=== PATIENT | female | born 1950 | race Caucasian/White ===

== ENCOUNTER 2019-05-23 08:01 | Inpatient (IN) | payer MEDICARE ==
[2019-05-20 09:18] LABS: BASOPHILS % 0.5 % (0.0-1.0); EOSINOPHILS # (AUTO) 0.1 (0.0-0.4); EOSINOPHILS % 2.3 % (0.0-6.0); HEMATOCRIT 37.5 % (34.2-44.1); HEMOGLOBIN 12.4 g/dL (12.0-16.0); LYMPHOCYTES # (AUTO) 2.3 (1.0-3.2); LYMPHOCYTES % 37.9 % (18.0-39.1); MEAN CORPUSCULAR HEMOGLOBIN 28.2 pg (28-32); MEAN CORPUSCULAR HGB CONC 33.1 g/dL (31-35); MEAN CORPUSCULAR VOLUME 85.4 fL (81-99); MONOCYTES # (AUTO) 0.7 (0.2-0.8); MONOCYTES % 11.1 % (4.4-11.3); NEUTROPHILS # (AUTO) 2.9 (2.1-6.9); NEUTROPHILS % 47.9 % (38.7-80.0); PLATELET COUNT 271 x10e3/uL (140-360); RED BLOOD COUNT 4.39 x10e6/uL (3.6-5.1); RED CELL DISTRIBUTION WIDTH 13.7 % (11.7-14.4)
--- NOTE | 2019-05-20 10:22 | Diagnostic Imaging Report ---
EXAMINATION: CHEST 2 VIEWS INDICATION: Preoperative COMPARISON: None FINDINGS: TUBES and LINES: None. LUNGS: The lung volumes are normal. No focal consolidation or pulmonary edema. PLEURA: No pleural effusion or pneumothorax. HEART AND MEDIASTINUM: The cardiomediastinal silhouette is normal in size and contour. BONES AND SOFT TISSUES: No acute fracture or dislocation. Moderate degenerative changes of the visualized spine. UPPER ABDOMEN: No free air under the diaphragm. IMPRESSION: No focal pneumonia or pulmonary edema. Signed by: Domo Hernadez MD on 05/20/2019 10:19 AM
[~2019-05-23] VITALS: Ht 165.1 cm; Wt 125.2 kg
[~2019-05-23 08:01] MED LIST: CITALOPRAM HBR20 MG PO; CRESTOR10 MG; GEMFIBROZIL600 MG; LOSARTAN POTAS100 MG PO; MELOXICAM7.5 MG PO; ROPIVACAINE 246.25 MG, EPINEPHRINE HCL 1:1000 1ML 0.5 MG, CLONIDINE HCL 0.08 MG, KETORO... INJ ONE; ULTRAM50 MG PO
--- OUTSIDE RECORDS SUMMARY | 2019-05-23 08:03 | XMS REPORT ---
Author [facility] Address Unknown Phone Unavailable Care Team Providers Care Fitness Manager Name Role Phone WAI WILKERSON Unavailable Unavailable Payers Payer Name Policy Type Policy Number Effective Date Expiration Date Problems This patient has no known problems. Allergies, Adverse Reactions, Alerts Allergy Name Allergy Type Status Severity Reaction(s) Onset Date Inactive Date Treating Clinician Comments Penicillins DA Active MO 2018-04-12 00:00:00 codeine DA Active MO 2018-04-12 00:00:00 Medications This patient has no known medications. Results Test Description Test Time Test Comments Text Results Atomic Results Result Comments CHEST 2 VIEWS 2019-05-20 10:18:00 [place] [id number] Patient Name: KATARZYNA DELVALLE MR #: [id number] : 1950 Age/Sex: 69/F Req #: [id number] Adm Physician: Ordered by: WAI WILKERSON MD Report #: [id number] Location: OR Room/Bed: Procedure: [id number] DX/CHEST 2 VIEWS Exam Date: 05/20/19 Exam Time: 914 REPORT STATUS: Signed EXAMINATION: CHEST 2 VIEWS INDICATION: Preoperative COMPARISON: None FINDINGS: TUBES and LINES: None. LUNGS: The lung volumes are normal. No focal consolidation or pulmonary edema. PLEURA: No pleural effusion or pneumothorax. HEART AND MEDIASTINUM: The cardiomediastinal silhouette is normal in size and contour. BONES AND SOFT TISSUES: No acute fracture or dislocation. Moderate degenerative changes of the visualized spine. UPPER ABDOMEN: No free air under the diaphragm. IMPRESSION: No focal pneumonia or pulmonary edema. Signed by: Charlotte Hernadez MD on 05/20/2019 10:19 AM Dictated By: CHARLOTTE HERNADEZ MD [id number] Transcribed By: NILESH on 05/20/19 1019 COPY TO: WAI WILKERSON MD URINALYSIS COMPLETE 2019-03-16 13:11:00 UA COLOR (test code=COLU) YELLOW YELLOW UA APPEARANCE (test code=APPU) CLEAR CLEAR UA GLUCOSE DIPSTICK (test code=DGLUU) norm mg/dL NEGATIVE UA BILIRUBIN DIPSTICK (test code=BILU) NEGATIVE mg/dL NEGATIVE UA KETONE DIPSTICK (test code=KETU) 5 (Trace) mg/dL NEGATIVE UA SPECIFIC GRAVITY (test code=SGU) 1.030 1.001-1.035 UA BLOOD DIPSTICK (test code=TIERNEY) 25 (1+) Unruly/uL NEGATIVE UA PH DIPSTICK (test code=JAMMIE) 5.0 5.0-8.0 UA PROTEIN DIPSTICK (test code=PROU) 30 (1+) mg/dL Neg-15 UA UROBILINIOGEN DIPSTICK (test code=URO) norm mg/dL 0.0-0.2 UA NITRITE DIPSTICK (test code=ORQUIDEA) NEGATIVE NEGATIVE UA LEUKOCYTE ESTERASE DIPSTICK (test code=LEUU) neg uL NEGATIVE UA WBC (test code=WBCU) 3-5 per HPF 0-5 UA RBC (test code=RBCU) 3-5 per HPF 0-5 UA EPITHELIAL CELLS (test code=EPIU) MODERATE per HPF Few UA BACTERIA (test code=BACU) MANY per HPF NONE Urine Source? Clean CatchURINALYSIS [id number] 13:05:00* Test Item Value Reference Range Comments UA COLOR (test code=COLU) YELLOW YELLOW UA APPEARANCE (test code=APPU) CLEAR CLEAR UA GLUCOSE DIPSTICK (test code=DGLUU) norm mg/dL NEGATIVE UA BILIRUBIN DIPSTICK (test code=BILU) NEGATIVE mg/dL NEGATIVE UA KETONE DIPSTICK (test code=KETU) 5 (Trace) mg/dL NEGATIVE UA SPECIFIC GRAVITY (test code=SGU) 1.030 1.001-1.035 UA BLOOD DIPSTICK (test code=TIERNEY) 25 (1+) Unruly/uL NEGATIVE UA PH DIPSTICK (test code=JAMMIE) 5.0 5.0-8.0 UA PROTEIN DIPSTICK (test code=PROU) 30 (1+) mg/dL Neg-15 UA UROBILINIOGEN DIPSTICK (test code=URO) norm mg/dL 0.0-0.2 UA NITRITE DIPSTICK (test code=ORQUIDEA) NEGATIVE NEGATIVE UA LEUKOCYTE ESTERASE DIPSTICK (test code=LEUU) neg uL NEGATIVE UA WBC (test code=WBCU) per HPF 0-5 UA RBC (test code=RBCU) per HPF 0-5 UA EPITHELIAL CELLS (test code=EPIU) per HPF Few UA BACTERIA (test code=BACU) per HPF NONE Urine Source? Clean CatchCOMPREHENSIVE METABOLIC [id number] 12:15:00* Test Item Value Reference Range Comments SODIUM (test code=NA) 141 mmol/L 135-148 POTASSIUM (test code=K) 4.4 mmol/L 3.5-5.1 CHLORIDE (test code=CL) 104 mmol/L 101-109 CARBON DIOXIDE (test code=CO2) 27.3 mmol/L 21-32 ANION GAP (test code=GAP) 14 mmol/L 10-20 GLUCOSE (test code=GLU) 150 mg/dL 74-106 BLOOD UREA NITROGEN (test code=BUN) 16 mg/dL 3-21 CREATININE (test code=CREAT) 0.67 mg/dL 0.55-1.3 BUN/CREATININE RATIO (test code=BUN/CREA) 23.9 10-20 TOTAL PROTEIN (test code=PROT) 7.4 g/dL 6.5-8.4 ALBUMIN (test code=ALB) 3.7 g/dL 3.4-4.8 GLOBULIN (test code=GLOB) 3.7 G/DL 1-10 ALBUMIN/GLOBULIN RATIO (test code=A/G) 1.0 RATIO 0.75-1.50 CALCIUM (test code=CA) 9.3 mg/dL 8.4-10.2 BILIRUBIN TOTAL (test code=BILT) 0.60 mg/dL 0.0-1.0 SGOT/AST (test code=AST) 16 U/L 6-32 SGPT/ALT (test code=ALT) 23 U/L 12-78 Note: Change in REFERENCE RANGE due to new reagent method. ALKALINE PHOSPHATASE TOTAL (test code=ALKP) 68 U/L 38-126 COMPREHENSIVE METABOLIC [id number] 12:14:00* Test Item Value Reference Range Comments SODIUM (test code=NA) 141 mmol/L 135-148 POTASSIUM (test code=K) 4.4 mmol/L 3.5-5.1 CHLORIDE (test code=CL) 104 mmol/L 101-109 CARBON DIOXIDE (test code=CO2) 27.3 mmol/L 21-32 ANION GAP (test code=GAP) 14 mmol/L 10-20 GLUCOSE (test code=GLU) 150 mg/dL 74-106 BLOOD UREA NITROGEN (test code=BUN) 16 mg/dL 3-21 CREATININE (test code=CREAT) 0.67 mg/dL 0.55-1.3 BUN/CREATININE RATIO (test code=BUN/CREA) 23.9 10-20 TOTAL PROTEIN (test code=PROT) gram/dL 6.4-8.2 ALBUMIN (test code=ALB) g/dL 3.4-5.0 GLOBULIN (test code=GLOB) g/dL 2.7-4.2 ALBUMIN/GLOBULIN RATIO (test code=A/G) 0.75-1.50 CALCIUM (test code=CA) 9.3 mg/dL 8.4-10.2 BILIRUBIN TOTAL (test code=BILT) mg/dL 0.2-1.2 SGOT/AST (test code=AST) IUnit/L 15-37 SGPT/ALT (test code=ALT) U/L 10-69 ALKALINE PHOSPHATASE TOTAL (test code=ALKP) IUnit/L 45-117 CBC W/AUTO [id number] 11:52:00* Test Item Value Reference Range Comments WHITE BLOOD CELL (test code=WBC) 8.5 K/mm3 4.5-12.5 RED BLOOD CELL (test code=RBC) 4.66 mill/mm3 3.7-5.2 HEMOGLOBIN (test code=HGB) 13.2 gram/dL 11.5-15.5 HEMATOCRIT (test code=HCT) 39.5 % 36.0-46.0 MEAN CELL VOLUME (test code=MCV) 84.8 fL 80-98 MEAN CELL HGB (test code=MCH) 28.3 picogram 27.0-33.0 MEAN CELL HGB CONCETRATION (test code=MCHC) 33.4 gram/dL 33.0-36.0 RED CELL DISTRIBUTION WIDTH (test code=RDW) 13.7 % 11.6-16.2 RED CELL DISTRIBUTION WIDTH SD (test code=RDW-SD) 41.6 fL 39.1-52.0 PLATELET COUNT (test code=PLT) 276 K/mm3 150-450 MEAN PLATELET VOLUME (test code=MPV) 10.3 fL 6.7-11.0 NEUTROPHIL % (test code=NT%) 79.4 % 39.0-69.0 LYMPHOCYTE % (test code=LY%) 15.7 % 25.0-55.0 MONOCYTE % (test code=MO%) 4.2 % 0.0-10.0 EOSINOPHIL % (test code=EO%) 0.5 % 0.0-5.0 BASOPHIL % (test code=BA%) 0.2 % 0.0-1.0 NEUTROPHIL # (test code=NT#) 6.73 K/mm3 1.8-7.7 LYMPHOCYTE # (test code=LY#) 1.33 K/mm3 1.0-5.0 MONOCYTE # (test code=MO#) 0.36 K/mm3 0-0.8 EOSINOPHIL # (test code=EO#) 0.04 K/mm3 0.0-0.5 BASOPHIL # (test code=BA#) 0.02 K/mm3 0.0-0.2
[2019-05-23] MEDS ORDERED: DEXAMETHASONE SOD PHOS 10 MG/1 ML VIAL ONE (08:06)
[2019-05-23] MEDS ORDERED: CELECOXIB 200 MG CAP ONE (08:06)
[2019-05-23] MEDS ORDERED: GABAPENTIN 300 MG CAP ONE (08:06)
[2019-05-23] MEDS ORDERED: VANCOMYCIN 1GM/NS 250 ML 250 ML ONE (08:07)
[2019-05-23] MEDS ORDERED: TRANEXAMIC ACID 1,000 MG/10 ML ML ONE (08:45)
[2019-05-23] MEDS ORDERED: VANCOMYCIN HCL 1,000 MG ONE (08:45)
[2019-05-23] MEDS ORDERED: BACITRACIN 50,000 UNIT VIAL ONE (08:46)
[2019-05-23] MEDS ORDERED: SODIUM CHLORIDE 0.9% 500ML 500 ML ONE (09:40)
[2019-05-23] MEDS ORDERED: HYDROCODONE/APAP 5MG-325MG TAB PO PRN (11:00)
[2019-05-23] MEDS ORDERED: DIPHENHYDRAMINE HCL INJ 50 MG/ML VIAL IM/IV PRN (11:00)
[2019-05-23] MEDS ORDERED: DOCUSATE SODIUM 100 MG CAP PO PRN (11:00)
[2019-05-23] MEDS ORDERED: ONDANSETRON HCL INJ 2MG/ML 2ML 2 MG/ML VIAL IV PRN (11:00)
[2019-05-23] MEDS ORDERED: PROMETHAZINE HCL (IM) 25 MG/ML VIAL INJ PRN (11:00)
[2019-05-23] MEDS ORDERED: HYDROCODONE/APAP 7.5MG-325MG 1 EA TAB PO PRN (11:00)
[2019-05-23] MEDS ORDERED: ACETAMINOPHEN 650 MG SUPP PR PRN (11:00)
[2019-05-23] MEDS ORDERED: ZOLPIDEM TARTRATE 5 MG TAB PO PRN (11:00)
[2019-05-23] MEDS ORDERED: KETOROLAC TROMETHAMINE 30 MG/ML VIAL IV PRN (11:00)
[2019-05-23] MEDS ORDERED: FENTANYL CITRATE/PF 100MCG/2 ML INJ ONE ×2 (11:23→18:44)
--- NOTE | 2019-05-23 12:53 | Diagnostic Imaging Report ---
Knee radiograph, 2 views. History: Findings: Postoperative findings of right knee arthroplasty with prosthetic components in anatomic alignment. No fracture. Overlying subcutaneous emphysema and surgical skin colten are present. Small joint effusion. IMPRESSION: Status post right knee replacement in anatomic position. Signed by: Domo Hernadez MD on 05/23/2019 12:50 PM
--- NOTE | 2019-05-23 13:41 | NUR ---
RECEIVED REPORT FROM LAURA IN PACU AWAITING FOR PT TO ARRIVE TO FLOOR
[2019-05-23 13:48] VITALS: BP 120/58
[2019-05-23] MEDS: SODIUM CHLORIDE 0.9% 1000ML 1,000 ML IV SCH ×2 (14:22→20:55)
[2019-05-23] MEDS: ACETAMINOPHEN 1000 MG/100 ML IV SCH ×3 (14:22→23:40)
[2019-05-23] MEDS ORDERED: EPINEPHRINE HCL 1:1000 1ML 1 MG/ML AMP ONE (14:56)
[2019-05-23] MEDS ORDERED: BUPIVACAINE HCL 0.5% INJ 30 ML VIAL INJ ONE (14:56)
--- NOTE | 2019-05-23 16:02 | NUR ---
MD HUBBARD OK HOME RENEWAL
[2019-05-23] MEDS: ASPIRIN 325 MG TAB PO SCH (16:51)
[2019-05-23] MEDS: CELECOXIB 200 MG CAP PO SCH (16:51)
[2019-05-23 17:20] VITALS: BP 122/58
[2019-05-23] MEDS ORDERED: ONDANSETRON HCL INJ 2MG/ML 2ML 2 MG/ML VIAL ONE (18:16)
[2019-05-23] MEDS ORDERED: SEVOFLURANE INHAL SOLN 250 ML PEN BTL ONE (18:16)
[2019-05-23] MEDS ORDERED: LIDOCAINE HCL 2% LOCAL INJ 5 ML SDV VIAL INJ ONE (18:16)
[2019-05-23] MEDS ORDERED: PROPOFOL IV EMULSION 10 MG/ML 20 ML VIAL ONE (18:16)
[2019-05-23] MEDS ORDERED: MIDAZOLAM HCL 2 MG/2 ML VIAL ONE (18:44)
[2019-05-23 20:00] VITALS: BP 108/55
[2019-05-23] MEDS: CRESTOR 10MG PO SCH (20:58)
[2019-05-23] MEDS: VANCOMYCIN 1GM/NS 250 ML 250 ML IV SCH (20:58)
[2019-05-23] MEDS ORDERED: SIMVASTATIN 20 MG TAB PO SCH (21:00)
[2019-05-23 21:21] VITALS: BP 108/55
[2019-05-24] VITALS (10 sets, daily range): BP systolic 100–136; BP diastolic 48–79
--- NOTE | 2019-05-24 05:29 | NUR ---
PLACED ON CPM 60 AT THIS TIME
[2019-05-24] MEDS: ACETAMINOPHEN 1000 MG/100 ML IV SCH ×3 (06:00→23:59)
[2019-05-24 06:35] LABS: HEMATOCRIT 32.4 % (34.2-44.1); HEMOGLOBIN 10.5 g/dL (12.0-16.0)
[2019-05-24] MEDS: SODIUM CHLORIDE 0.9% 1000ML 1,000 ML IV SCH ×2 (06:55→17:41)
[2019-05-24] MEDS ORDERED: ONDANSETRON HCL 4 MG ORAL DISINTEGRATING TAB PO PRN (08:45)
[2019-05-24] MEDS ORDERED: SIMVASTATIN 40 MG TAB PO SCH (09:00)
[2019-05-24] MEDS ORDERED: ASPIRIN325 MG PO (09:00)
[2019-05-24] MEDS: LOSARTAN POTASSIUM 100 MG TAB PO SCH (09:00)
[2019-05-24] MEDS: CELECOXIB 200 MG CAP PO SCH ×2 (09:05→16:39)
[2019-05-24] MEDS: GEMFIBROZIL 600 MG TAB PO SCH (09:05)
[2019-05-24] MEDS: ASPIRIN 325 MG TAB PO SCH ×2 (09:05→16:38)
[2019-05-24] MEDS: VANCOMYCIN 1GM/NS 250 ML 250 ML IV SCH (09:05)
[2019-05-24] MEDS: CITALOPRAM HYDROBROMIDE 20 MG TAB PO SCH (09:05)
--- NOTE | 2019-05-24 09:13 | NUR ---
DR VINES OFFICE PREARRANGED FOLLOWING DISCHARGE PLAN OF: RETURNING HOME TO [address] [place] [address] [address], [place] [address], PHONE IS [phone] HOME [facility] WITH [facility] [phone] CONFIRMED WITH [facility] ENG 3 IN ONE COMMODE PROVIDED BY [facility] [phone] VIA [facility]. SW WILL PROVIDE THE ROLLING WALKER GET SIGNATURES AND FILE IN PACU FOR SUBMISSION TO ENSURE SAFE DISCHARGE.
--- NOTE | 2019-05-24 10:10 | Consultation ---
DATE OF CONSULTATION: 05/24/2019 REASON FOR CONSULTATION: Postop medical management. HISTORY OF PRESENT ILLNESS: The patient is a 69-year-old lady status post right knee arthroplasty for end-stage osteoarthritis, who is doing well postoperatively. REVIEW OF SYSTEMS: Denies chest pain, fever, chills, nausea, vomiting, headache, shortness of breath, and dizziness. PAST MEDICAL HISTORY: Significant for hypertension and hyperlipidemia. MEDICATIONS: See MAR. ALLERGIES: CODEINE AND PENICILLIN. SOCIAL HISTORY: She is a nonsmoker. She is . Nondrinker. FAMILY HISTORY: Diabetes and high blood pressure. PHYSICAL EXAMINATION: VITAL SIGNS: Temperature 97.0, pulse 61, blood pressure 108/51, sats 92%. GENERAL: She is in no apparent distress, lying in bed. NECK: Supple. CARDIOVASCULAR: Regular rate and rhythm. LUNGS: Clear to auscultation bilaterally. ABDOMEN: Good bowel sounds. Soft, nontender. EXTREMITIES: No clubbing or cyanosis. NEUROLOGIC: No focal. ASSESSMENT AND PLAN: 1. Status post right knee arthroplasty. Continue with postoperative care. 2. Right knee pain. Continue with postoperative pain medicines. 3. Anemia. Check a CBC. 4. Hypertension. Monitor her blood pressure. Continue with her medications. 5. Hyperlipidemia. We will continue with her cholesterol medicines. Please see hospital chart for full details. MD CLEVE Christiansen/[place] /[id number]
[2019-05-24] MEDS ORDERED: ACETAMINOPHEN 1000 MG/100 ML IV PRN (11:00)
--- NOTE | 2019-05-24 12:16 | NUR ---
DC INSTRUCTIONS INSTRUCTIONS GIVEN. PT VERBALIZED UNDERSTANDING. IV DC PRESSURE DRESSING APPLIED AND TAPED PT IS READY FOR DC
--- NOTE | 2019-05-24 12:35 | NUR ---
RAPID CALLED FROM FRONT LOBBY. UPON TRANSFERRING PT TO CAR, PT REPORTS SLIPPING OUT OF CHAIR PT WAS WHEEL CHAIRED BACK TO ROOM, RIGHT KNEE DRESSING SATURATED WITH BLOOD REINFORCED WITH DICK WRAP UPON ROOM ARRIVAL MD WILKERSON NOTIFIED, STATES HE WILL COME AND ASSESS PT VS TAKEN / WITHIN NORMAL LIMITS PT SITTING IN WHEEL CHAIR WITH LEG ELEVATED CALL LIGHT IS AT BEDSIDE , WILL CONTINUE TO MONITOR
--- NOTE | 2019-05-24 12:40 | NUR ---
Rapid response called on patient. Patient was in front discharging and tech informed this nurse that she lost her balance but they caught her and sat her in wheelchair. Right knee noted to be bleeding through her dressing. Informed staff to bring patient back to her room and call placed to Dr. Llanos. Informed of situation and he informed this nurse he would be right over to see the patient.
--- NOTE | 2019-05-24 12:42 | NUR ---
Patient in room in wheelchair and bleeding noted all over her incision and dressing. Reinforced dressing with DICK wrap. Bleeding controlled. Patient assisted back to bed via two staff members.
--- NOTE | 2019-05-24 13:00 | NUR ---
MD WILKERSON ROUNDED AND LOOKED AND INCISION. REINFORCED IT WITH NEW DICK WRAP, ORDER FOR PT TO GO BACK TO OR TODAY FOR FIXURE . CONSENT SIGNED. PT AWARE , NPO STATUS. WILL MONITOR SITE CLOSELY
--- NOTE | 2019-05-24 13:32 | Operative Report ---
DATE OF PROCEDURE: 05/23/2019 SURGEON: Kyle Llanos MD PSYCHOTHERAPIST SOCIAL WORKER: Quinten Pope PA-C. PREOPERATIVE DIAGNOSES: 1. Osteoarthritis, right knee. 2. Morbid obesity. POSTOPERATIVE DIAGNOSES: 1. Osteoarthritis, right knee. 2. Morbid obesity. PROCEDURE: Right total knee arthroplasty. Added complexity secondary to a BMI greater than 46. INDICATIONS: The patient is a 69-year-old lady, who has severe arthritis in her right knee. She has failed conservative management and would like to proceed with definitive intervention. We have discussed her options at length. She has a BMI of over 46. We have explained the added potential for perioperative complications due to her body habitus. She feels like she has made a reasonable but unsuccessful attempt to lose weight. She accepts the additional potential for complications and wishes to proceed. PROCEDURE IN DETAIL: The patient was brought to the operating room and placed under general anesthetic. She received a regional block, prophylactic antibiotics and tranexamic acid in the holding area. Throughout the case, added personnel and difficulty was encountered due to the patient's size and body habitus. The right lower extremity was prepped and draped in a sterile manner. A preoperative time-out was performed. The extremity was exsanguinated and a proximal tourniquet was inflated to 350 mmHg. An anterior approach with a slightly more extensile incision was made over the right knee. Abundant subcutaneous adipose was encountered. A medial parapatellar arthrotomy was performed. Clear synovial fluid was removed from the joint. Soft tissue releases were performed to bring the knee up into flexion with the patella everted. I made efforts to limit as much as possible the potential for space. The anterior cruciate ligament was sacrificed. Meniscal remnants and marginal osteophytes were removed. Again, due to her size, I elected to use an intramedullary cutting guide. The proximal tibia was resected by referencing off the lateral compartment. The tibial baseplate was a size #5. The central fin punch was impacted and attention was directed towards the distal femur. Throughout the case, a [employer] knee system was used. An intramedullary cutting guide was used to resect the distal femur in 6 degrees of valgus and rotation referencing off a combination of landmarks including Whitesides line, the epicondylar axis and the posterior condyles. The femoral component was sized at a #6 component. The anterior and posterior cuts were made. Trial implants were placed. A trial reduction with a 9 mm ultracongruent tibial insert provided appropriate soft tissue balancing in full extension and 90 degrees of flexion. The patella was resurfaced with a 32 mm x 7.5 mm patellar button. The thickness was checked before and after and was right at 23 mm. Patellar tracking was noted to be concentric. The trial implants were then all removed. The knee was thoroughly irrigated with a shower tip pulsatile lavage. A 100 mL premixed pericapsular REN injection was placed into the surrounding soft tissue. The knee was further irrigated and then the components were cemented into place using a single mix of Palacos cement preloaded with antibiotics. Care was taken to remove all extravasated cement. The wound was further irrigated while the cement cured. 500 mg of vancomycin powder were then sprinkled into the joint. The arthrotomy was carefully closed with interrupted #1 Ethibond. The knee was put through flexion and extension to ensure a secure closure. The skin was closed with subcuticular Vicryl and colten. A sterile Aquacel bandage was applied. The patient was extubated and transported to the recovery room in stable condition. Blood loss was minimal. All needle and sponge counts were correct. Kyle Llanos MD DR/[place] /[id number]
--- NOTE | 2019-05-24 14:58 | NUR ---
PT WAS DISCHARGING FROM BUILDING AND FELL AND OPENED SURGICAL SITE, WAITING ON NEW ORDER TO DISCHARGE.
--- NOTE | 2019-05-24 15:05 | NUR ---
Visit made by the Spiritual Care Department Pastoral Visitor, Saumya Bentley. PV provided pastoral presence, prayer, hospitality, and supportive listening. Pastoral Visitor informed pt/family of the scope of Director Card Services and availability. JUSTIN PRADHAN Associate Professor Of History Spiritual Care Department O: [phone] Pager: [phone] ([phone] number calling from)
[2019-05-24] MEDS ORDERED: BACITRACIN 50,000 UNIT VIAL ONE (15:07)
--- NOTE | 2019-05-24 16:34 | NUR ---
PT OFF UNIT FOR SX AT THIS TIME
[2019-05-24] MEDS ORDERED: VANCOMYCIN HCL 1,000 MG ONE (16:47)
[2019-05-24] MEDS ORDERED: VANCOMYCIN 1GM/NS 250 ML 250 ML ONE (17:20)
[2019-05-24] MEDS ORDERED: HYDROCODONE/APAP 5MG-325MG TAB PO PRN (17:45)
[2019-05-24] MEDS ORDERED: DIPHENHYDRAMINE HCL INJ 50 MG/ML VIAL IM/IV PRN (17:45)
[2019-05-24] MEDS ORDERED: PROMETHAZINE HCL (IM) 25 MG/ML VIAL IM PRN (17:45)
[2019-05-24] MEDS ORDERED: DOCUSATE SODIUM 100 MG CAP PO PRN (17:45)
[2019-05-24] MEDS ORDERED: ONDANSETRON HCL INJ 2MG/ML 2ML 2 MG/ML VIAL IV PRN (17:45)
[2019-05-24] MEDS ORDERED: ACETAMINOPHEN 650 MG SUPP PR PRN (17:45)
[2019-05-24] MEDS ORDERED: ONDANSETRON HCL INJ 2MG/ML 2ML 2 MG/ML VIAL ONE (18:01)
[2019-05-24] MEDS ORDERED: SEVOFLURANE INHAL SOLN 250 ML PEN BTL ONE (18:01)
[2019-05-24] MEDS ORDERED: LIDOCAINE HCL 2% LOCAL INJ 5 ML SDV VIAL INJ ONE (18:01)
[2019-05-24] MEDS ORDERED: PROPOFOL IV EMULSION 10 MG/ML 20 ML VIAL ONE (18:01)
[2019-05-24] MEDS ORDERED: DEXAMETHASONE SOD PHOS INJ 4 MG/ML VIAL ONE (18:01)
[2019-05-24] MEDS ORDERED: ROCURONIUM BROMIDE 10 MG/ML 5ML VIAL ONE (18:01)
[2019-05-24] MEDS ORDERED: SUCCINYLCHOLINE 200 MG/10 ML SYR ONE (18:01)
[2019-05-24] MEDS ORDERED: NEOSTIGMINE 5 MG/5ML SYR ONE (18:01)
--- NOTE | 2019-05-24 18:03 | NUR ---
RECEIVED REPORT FROM [facility] IN RECOVERY AWAITING FOR PT TO ARRIVE TO FLOOR
[2019-05-24] MEDS ORDERED: HYDROMORPHONE 2MG/ML 2 MG/ML ML ONE (18:09)
[2019-05-24] MEDS ORDERED: PROMETHAZINE HCL (IM) 25 MG/ML VIAL ONE (18:11)
[2019-05-24] MEDS ORDERED: FENTANYL CITRATE/PF 100MCG/2 ML INJ ONE (18:29)
[2019-05-24] MEDS ORDERED: MIDAZOLAM HCL 2 MG/2 ML VIAL ONE (18:29)
--- NOTE | 2019-05-24 18:47 | NUR ---
RECEIVED PT TO FLOOR AA0X3. PT RIGHT KNEE IS DRESSED DICK IS DRY AND INTACT WITH IMMOBILIZER IN PLACE FOOT PUMP ON V.S WITHIN NORMAL LIMITS WILL CONTINUE TO MONITOR PT AT THIS TIME SIDE RAILSX2, BED WHEELS LOCKED CALL LIGHT IS WITHIN EASY REACH INSTRUCTED TO CALL FOR ASSISTANCE IF NEEDED
--- NOTE | 2019-05-24 19:13 | Operative Report ---
DATE OF PROCEDURE: 05/24/2019 SURGEON: Kyle Llanos MD RETAIL DELIVERY DRIVER: Quinten Pope, certified PA. PREOPERATIVE DIAGNOSIS: Complete right knee wound traumatic separation. POSTOPERATIVE DIAGNOSIS: Complete right knee wound traumatic separation. PROCEDURE: Right knee wound irrigation and debridement with revision arthrotomy and skin closure. INDICATIONS: The patient is a 69-year-old lady, who is one day status post a right total knee replacement. She was making excellent progress in her early postoperative care. She was walking well with physical therapy and was highly motivated to go home. She was discharged and was leaving the hospital when she fell. She has a BMI of 46 and is deconditioned. She had a sterile Aquacel bandage on the anterior aspect of her knee that partially opened up on the inside. A simple and precursory inspection showed that the wound had completely broken open. We brought her back into the hospital and set her up for an emergent irrigation and debridement and secondary closure. The risks of infection have been explained to the patient. She states she understands. PROCEDURE IN DETAIL: The patient was brought to the operating room and placed under general anesthetic. She was given vancomycin preoperatively. The dressing was removed. Both the skin and deep arthrotomy closure were noted to be completely traumatically . There was a large hematoma. All of the colten and Ethibond stitches were removed with a hemostat. The right lower extremity was prepped and draped in a sterile manner. A preoperative time-out was performed. The knee was thoroughly irrigated with 6 L of sterile saline using a pulsatile lavage. All of the hematoma was cleared. All of the previous stitches were removed. The components were scrubbed with Betadine. The wound was then further irrigated with sterile saline. A 500 mg of vancomycin powder were sprinkled into the knee. The arthrotomy was then closed a 2nd time with interrupted #1 Ethibond. The skin was closed with interrupted 2-0 Prolene. A sterile bandage and a knee immobilizer were applied. Blood loss was 100 mL, which was primarily the hematoma. All needle and sponge counts were correct. Kyle Llanos MD DR/[place]ELI /[id number]
[2019-05-24] MEDS: KETOROLAC TROMETHAMINE 30 MG/ML VIAL IV PRN (19:55)
--- NOTE | 2019-05-24 19:55 | Diagnostic Imaging Report ---
KNEE RIGHT 1-2 VIEWS - 3 views HISTORY: Pain. Right knee osteoarthritis. Status post right knee surgery. COMPARISON: Right knee x-ray 05/23/2019 FINDINGS: Status post right total knee arthroplasty in good alignment. Revision of the articular surface. Postoperative subcutaneous gas and edema. IMPRESSION: New total right knee arthroplasty. Signed by: Dr. Jeevan Dodge M.D. on 05/24/2019 7:52 PM
[2019-05-24] MEDS: CRESTOR 10MG PO SCH (20:53)
[2019-05-24] MEDS ORDERED: ZOLPIDEM TARTRATE 5 MG TAB PO PRN (21:00)
[2019-05-25] VITALS (7 sets, daily range): BP systolic 102–134; BP diastolic 47–63
[2019-05-25] MEDS: SODIUM CHLORIDE 0.9% 1000ML 1,000 ML IV SCH ×3 (03:54→23:41)
[2019-05-25] MEDS ORDERED: VANCOMYCIN 1GM/NS 250 ML 250 ML IV SCH ×2 (04:00→05:30)
[2019-05-25 05:22] LABS: HEMATOCRIT 27.9 % (34.2-44.1); HEMOGLOBIN 9.1 g/dL (12.0-16.0)
--- NOTE | 2019-05-25 05:53 | NUR ---
INFORMED DR. HUBBARD REGARDING PT VANCO THROUGH READING 20.9. SAID TO GIVE ONLY 500MG OF VANCOMYCIN NOW AND 500MG OF VANCOMYCIN AT 1730
[2019-05-25] MEDS: ACETAMINOPHEN 1000 MG/100 ML IV SCH ×2 (06:02→12:40)
[2019-05-25] MEDS: VANCOMYCIN 500MG/NS 0.9% 100ML 100 ML IV SCH ×2 (06:30→18:30)
--- NOTE | 2019-05-25 07:14 | NUR ---
PT AWAKE, RESP EVEN AND UNLABORED, NO DISTRESS NOTED, PT ABLE TO MAKE NEEDS KNOWN, PT HAS IMMOBILIZER IN PLACE, PT ABLE TO MAKE NEEDS KNOWN CALL LIGHT IN REACH.
[2019-05-25] MEDS ORDERED: ASPIRIN 325 MG TAB PO SCH (09:00)
[2019-05-25] MEDS ORDERED: CELECOXIB 100 MG CAP PO SCH (09:00)
[2019-05-25] MEDS: LOSARTAN POTASSIUM 100 MG TAB PO SCH (09:00)
--- NOTE | 2019-05-25 09:15 | NUR ---
pt ambulate with PT 110 ft tolerated well.
[2019-05-25] MEDS: CELECOXIB 200 MG CAP PO SCH ×2 (09:27→16:20)
[2019-05-25] MEDS: HYDROCODONE/APAP 7.5MG-325MG 1 EA TAB PO PRN ×2 (10:50→16:40)
--- NOTE | 2019-05-25 11:45 | NUR ---
pt left knee bleeding outside of aquacel dressing, Dr Llanos was called, orders given.
[2019-05-25] MEDS: CITALOPRAM HYDROBROMIDE 20 MG TAB PO SCH (12:40)
[2019-05-25] MEDS: GEMFIBROZIL 600 MG TAB PO SCH (12:40)
[2019-05-25] MEDS: KETOROLAC TROMETHAMINE 30 MG/ML VIAL IV PRN (12:45)
[2019-05-25] MEDS ORDERED: ACETAMINOPHEN 1000 MG/100 ML IV PRN (17:45)
--- NOTE | 2019-05-25 19:04 | NUR ---
WALKING RONDS PERFORMED, RECEIVED PT LAYING SEMI FOWLERS IN BED, AAOX3, RR EVEN AND NON-LABORED, ON ROOM AIR. NO S/SX OF DISTRESS NOTED. (R) KNEE WITH DICK WRAP THAT IS CDI WITH IMMOBILIZER BRACE IN PLACE. LEFT PT LAYING SEMI FOWLERS IN BED, BED IN LOW LOCKED POSITION, SIDE RAILS UPX2, CALL LIGHT AND PHONE WITHIN REACH.
--- NOTE | 2019-05-25 19:09 | NUR ---
report given to oncoming nurse for continued care. pt stable.
[2019-05-25] MEDS: CRESTOR 10MG PO SCH (20:29)
[2019-05-26] VITALS: BP 104/57
[2019-05-26] MEDS: HYDROCODONE/APAP 7.5MG-325MG 1 EA TAB PO PRN ×3 (03:14→14:57)
[2019-05-26] MEDS: SODIUM CHLORIDE 0.9% 1000ML 1,000 ML IV SCH (03:20)
[2019-05-26 04:00] VITALS: BP 115/53
--- NOTE | 2019-05-26 06:21 | NUR ---
PAGE PLACED FOR MD WILKERSON CONCERNING CPM CLARIFICATION. ORDER FOR CPM POST (R) TKA ON 05/24 BUT NO ORDER POST 05/24 I/D AND REVISION ARTHROTOMY. PT CURRENTLY WEARING AN IMMOBILIZER, WAITING FOR CLARIFICATION BEFORE STARTING CPM. Addendum: 05/26/19 at 0715 by Kyra Boyle RN ORDER FOR CPM POST (R) TKA ON 05/23
[2019-05-26 06:46] LABS: HEMATOCRIT 27.5 % (34.2-44.1)
--- NOTE | 2019-05-26 07:11 | NUR ---
BEDSIDE SHIFT REPORT PERFORMED WITH ONCOMING NURSE.
--- NOTE | 2019-05-26 07:12 | NUR ---
pt alert watching TV, no distress noted, pt able to make needs known, no c/o pain when asked, leg immobilizer, call light in place.
[2019-05-26 08:00] VITALS: BP 102/60
[2019-05-26 08:18] VITALS: BP 102/60
[2019-05-26] MEDS ORDERED: CITALOPRAM HYDROBROMIDE 20 MG TAB PO SCH (09:00)
[2019-05-26] MEDS: LOSARTAN POTASSIUM 100 MG TAB PO SCH (09:00)
[2019-05-26] MEDS: CITALOPRAM HYDROBROMIDE 20 MG TAB PO SCH (09:14)
[2019-05-26] MEDS: GEMFIBROZIL 600 MG TAB PO SCH (09:14)
[2019-05-26] MEDS: CELECOXIB 200 MG CAP PO SCH (09:14)
[2019-05-26 12:41] VITALS: BP 90/55
[2019-05-26] MEDS ORDERED: DOXYCYCLINE HY100 MG PO (13:18)
--- NOTE | 2019-05-26 14:30 | NUR ---
pt right surgical knee site cleaned and re dressed , and pt teaching to pt and , both verbalized understandings to changed dressing 2 times a day and to follow up with Dr. Llanos's office.
--- NOTE | 2019-05-26 15:00 | NUR ---
pt discharged home, with prescriptions, pt and her educated on antibiotics, both pt and family member verbalized understanding, pt iv site removed, no swelling no redness to site. cath tip intact
== END 2019-05-26 15:22 | disposition home health service (06) | DRG 464 ==
LOC: OR 08:01 → PACU V 10:57 → MED/SURG 13:48 → UNDODISOB 05-24 12:33 → OBSVTOIN 05-24 17:43
PROVIDERS: ADMIT Specialist; ATTEND Specialist
PROC: 0JBN0ZZ Excision of Right Lower Leg Subcutaneous Tissue and Fascia, Open Approach (ICD-10-PCS; 2019-05-24)
PROC: 0SRC0J9 Replacement of Right Knee Joint with Synthetic Substitute, Cemented, Open Approach (ICD-10-PCS; principal; 2019-05-24 13:00)
DX: M17.0 Bilateral primary osteoarthritis of knee (principal); Z68.42 Body mass index [BMI] 45.0-49.9, adult; T81.32XA Disruption of internal operation (surgical) wound, not elsewhere classified, initial encounter; M96.840 Postprocedural hematoma of a musculoskeletal structure following a musculoskeletal system procedure; E66.01 Morbid (severe) obesity due to excess calories; I10 Essential (primary) hypertension; E78.5 Hyperlipidemia, unspecified; D64.9 Anemia, unspecified
CPT/HCPCS: 36415; 71046; 80202; 85014; 85018; 85025; 86850; 86900; 86920; 97139; C1713; G0378; J0171; J1100; J1885; J2001; J2250; J2405; J2550; J2795; J3010; J3370; J7030; J7040